=== PATIENT | male | born 1965 | race Caucasian/White ===

== ENCOUNTER → 2021-04-29 10:11 | Outpatient (CLI) | payer OTHER, SELFPAY ==
--- NOTE | 2021-04-29 | DI.RAD.S_ITS ---
PROCEDURE: XR LUMBAR SPINE 2-3V INDICATIONS: Low back pain TECHNIQUE: 3 views of the lumbar spine were acquired. COMPARISON: None. FINDINGS: Normal bone mineralization. There is 30 percent wedge-shaped anterior height loss noted at L1. Remainder of the vertebral body heights and alignment are maintained. Disc space narrowing and facet sclerosis noted at L3-4, L4-5 and L5-S1. Thoracolumbar convex left scoliosis present. IMPRESSION: 1. L1 30 percent compression fracture, uncertain age. 2. Lower lumbar spine degenerative disc disease and arthropathy 3. Thoracolumbar levoscoliosis Approved by: Aubrey Landry M.D. on 04/29/2021 at 12:06
== END ==
PROVIDERS: PCP Internal Medicine; Referring Provider Anesthesiology; Visit Provider Anesthesiology
DX: M51.36 Other intervertebral disc degeneration, lumbar region (principal); M54.5 Low back pain; M47.816 Spondylosis without myelopathy or radiculopathy, lumbar region; M41.85 Other forms of scoliosis, thoracolumbar region; M48.56XA Collapsed vertebra, not elsewhere classified, lumbar region, initial encounter for fracture; G89.4 Chronic pain syndrome
CPT/HCPCS: 72100